=== PATIENT | female | born 1945 | race Caucasian/White ===

== ENCOUNTER → 2017-07-15 | Outpatient (CLI) | payer OTHER ==
[~2017-07-15] MED LIST: ATOR-54 PO; CHOL100010 PO; LISI10TA PO; MULT-55 PO
--- NOTE | 2017-07-15 15:27 | DIAGNOSTIC IMAGING REPORT ---
L WRIST MIN 3 VIEWS ROUTINE CLINICAL HISTORY: 71 years-old Female presenting with LEFT WRIST PAIN. TECHNIQUE: Frontal, bilateral oblique, and lateral views of the left wrist were obtained. COMPARISON: None. FINDINGS: No acute fracture or malalignment. Osteophytosis, joint space loss, and subchondral sclerosis noted at the trapezium-first metacarpal articulation. No other sites of advanced degenerative change. Radiocarpal articulation preserved. IMPRESSION: 1. No acute osseous injury of the left wrist. 2. Degenerative changes of the first carpometacarpal articulation, characteristic of osteoarthritis. Electronically signed by: Rober Chung M.D. 07/15/2017 3:26 PM Dictated Date/Time: 07/15/2017 3:24 PM
== END | disposition home or self-care (01) ==
LOC: C.RAD1850 15:13
PROVIDERS: ATTEND Student in an Organized Health Care Education/Training Program
DX: M25.532 Pain in left wrist (principal)

== ENCOUNTER 2020-07-09 23:01 | Observation (INO) ==
[2020-07-09] MEDS ORDERED: STAT IV Infusion **Titration per Protocol STA (23:24)
[2020-07-09] MEDS ORDERED: dilTIAZem HCl 5 MG/ML 5 ML VIAL IV STA (23:24)
--- NOTE | 2020-07-09 23:28 | Emergency Department Note ---
History of Present Illness General Chief complaint: Arrhythmia/Palpitations Stated complaint: HEART PALPAITATION Time Seen by Provider: 07/09/20 23:10 Source: patient Mode of arrival: ambulatory Limitations: no limitations History of Present Illness Provider complaint: palpitations, sob Onset (ago): minute(s) 25 Location: chest Radiation: non-radiation Severity: moderate Pain Consistency: + constant Maximum Pain Intensity: 7 Quality: + constant Relieved By: + none Associated symptoms: + loss of appetite, + nausea/vomiting and + shortness of breath Treatments prior to arrival: none This is a 74-year-old female who presents emergency department complaining of palpitations. Patient states it seemed to began abruptly this evening not during any particular activity. Patient states she sat has had a similar episode about a month ago, however this went away on its own. She does not recall how long it lasted. Patient states she does take medication for blood pressure and cholesterol, denies any recent changes. Patient states she does typically drink wine, almost daily, states she did not drink any tonight, but did drink on Thursday. Patient states she did have 2 cups of coffee today as well as tea. Patient denies any recent illness or known sick contact, no exposure to coronavirus. Patient has had the first of her coronavirus vaccines. Patient denies any other recent dietary changes. Patient denies any change in bowel or bladder function, no lower extremity edema. Patient denies any history of heart problems or known dysrhythmia. Patient believes at one point she may have had an echo performed of her heart as ordered by her family doctor Dr. Dumont, she cannot recall when this was. Patient denies any significant cardiac history in her family. Patient states when the symptoms started she also felt short of breath, lightheaded, and slightly nauseated. Pt seen during a time of high acuity and national emergency pandemic while wearing PPE. Home Medications Medication Instructions Recorded Confirmed Type atorvastatin 20 mg PO HS 07/09/20 07/09/20 History cholecalciferol (vitamin D3) 50 mcg PO DAILY 07/09/20 07/09/20 History [Vitamin D3] doxycycline hyclate 50 mg PO DAILY 07/09/20 07/09/20 History ibuprofen 600 mg PO TID PRN 07/09/20 07/09/20 History lisinopril 10 mg PO DAILY 07/09/20 07/09/20 History lorazepam 0.5 mg PO TID PRN 07/09/20 07/09/20 History multivitamin [Multiple Vitamin] 1 tab PO DAILY 07/09/20 07/09/20 History Allergies Allergy/AdvReac Type Severity Reaction Status Date / Time No Known Allergies Allergy NONE Unverified 07/09/20 23:28 Past Med/Surg History Medical History (Updated 07/10/20 @ 05:43 by Carlota Rmairez DO) Arthritis Essential (primary) hypertension Frontal fibrosing alopecia Hyperlipidemia Surgical History (Updated 07/10/20 @ 01:38 by Angela Alcala DO) History of section Family History (Updated 07/10/20 @ 01:38 by Angela Alcala DO) Other Cancer Social History (Updated 07/10/20 @ 01:39 by Angela Alcala DO) Smoking Status: Never smoker Hx Alcohol Use: Yes Alcohol type: wine Hx Substance Use: No Preferred Language: Pry[place]in[place] Communication Ability: Effective Prosthetic Aides Teacher Required: No Beliefs That Will Affect Care: None Current Living Situation: Spouse Feels Safe at Home: Yes Assistive Devices: Glasses Review of Systems See HPI for pertinent positives & negatives. and A total of 10 systems reviewed and were otherwise negative Physical Exam Vital Signs Vital Signs - 24 hr 07/09/20 23:06 07/09/20 23:14 07/09/20 23:17 Temperature 36.9 C Temperature Source Temporal Artery Scan Pulse Rate 153 H 160 H 150 H Pulse Rate from SpO2 Sensor 149 H 154 H Respiratory Rate 20 15 18 Respiratory Effort / Characteristics Non-Labored Spontaneous Respiratory Depth Normal Blood Pressure 173/130 H Blood Pressure Mean 144 Blood Pressure Position Sitting Pulse Oximetry 99 97 98 Oxygen Delivery Method Room Air Room Air Room Air Sepsis Recent Fever Within 48 Hours No Sepsis New/Unexplained Change in Mental Status N/A Sepsis Action Taken by Nursing No Action Required 07/09/20 23:30 07/09/20 23:31 07/09/20 23:45 Temperature Temperature Source Pulse Rate 146 H 148 H 123 H Pulse Rate from SpO2 Sensor 134 H 143 H 120 H Respiratory Rate 12 15 23 Respiratory Effort / Characteristics Respiratory Depth Blood Pressure 135/93 Blood Pressure Mean 107 Blood Pressure Position Pulse Oximetry 96 95 95 Oxygen Delivery Method Room Air Room Air Room Air Sepsis Recent Fever Within 48 Hours Sepsis New/Unexplained Change in Mental Status Sepsis Action Taken by Nursing 07/10/20 00:00 07/10/20 00:01 07/10/20 00:15 Temperature Temperature Source Pulse Rate 150 H 125 H 131 H Pulse Rate from SpO2 Sensor 147 H 118 H 126 H Respiratory Rate 18 12 15 Respiratory Effort / Characteristics Respiratory Depth Blood Pressure 139/108 H 132/76 Blood Pressure Mean 118 94 Blood Pressure Position Pulse Oximetry 96 96 94 Oxygen Delivery Method Room Air Room Air Room Air Sepsis Recent Fever Within 48 Hours Sepsis New/Unexplained Change in Mental Status Sepsis Action Taken by Nursing 07/10/20 00:31 07/10/20 00:45 07/10/20 01:00 Temperature Temperature Source Pulse Rate 122 H 126 H 129 H Pulse Rate from SpO2 Sensor 104 H 111 H 108 H Respiratory Rate 12 12 15 Respiratory Effort / Characteristics Respiratory Depth Blood Pressure 121/90 127/87 115/82 Blood Pressure Mean 100 100 93 Blood Pressure Position Pulse Oximetry 95 96 95 Oxygen Delivery Method Room Air Room Air Room Air Sepsis Recent Fever Within 48 Hours Sepsis New/Unexplained Change in Mental Status Sepsis Action Taken by Nursing 07/10/20 01:15 Temperature Temperature Source Pulse Rate 128 H Pulse Rate from SpO2 Sensor 107 H Respiratory Rate 23 Respiratory Effort / Characteristics Respiratory Depth Blood Pressure 109/82 Blood Pressure Mean 91 Blood Pressure Position Pulse Oximetry 93 Oxygen Delivery Method Room Air Sepsis Recent Fever Within 48 Hours Sepsis New/Unexplained Change in Mental Status Sepsis Action Taken by Nursing GENERAL: alert, uncomfortable appearing, well nourished, mild distress, non- toxic EYE EXAM: normal conjunctiva, PERRL and EOM's grossly intact OROPHARYNX: no exudate, no erythema, lips, buccal mucosa, and tongue normal and mucous membranes are moist NECK: supple, no nuchal rigidity, no adenopathy, non-tender LUNGS: Clear to auscultation. Normal chest wall mechanics, no w/r/r HEART: no murmurs, S1 normal and S2 normal, tachycardic, A. fib with RVR on tel emetry ABDOMEN: abdomen soft, non-tender, normo-active bowel sounds, no masses, no rebound or guarding. BACK: Back is symmetrical on inspection and there is no deformity, no midline tenderness, no CVA tenderness. SKIN: no rashes and no bruising UPPER EXTREMITIES: upper extremities are grossly normal. FROM, nml pulses b/l. LOWER EXTREMITIES: No pitting edema. FROM, nml pulses b/l. NEURO EXAM: Normal sensorium, cranial nerves II-XII grossly intact, normal speech, no gross weakness of arms, no gross weakness of legs. Gross sensation intact. Course Administered Medications Sodium Chloride (Nss 1000ml) 1,000 mls @ 125 mls/hr IV .Q8H LUISA Stop: 08/08/20 23:29 Last Admin: 07/09/20 23:33 Dose: 125 mls/hr Documented by: [id number] Diltiazem HCl 125 mg/ Dextrose 125 mls @ 15 mls/hr IV .Q8H20M LUISA; Protocol Stop: 08/08/20 23:29 Last Titration: 07/10/20 04:39 Dose: 10 mg/hr, 10 mls/hr Documented by: [id number] Cosigned by: [id number] Titration: 07/10/20 02:49 Dose: 15 mg/hr, 15 mls/hr Documented by: [id number] Cosigned by: [id number] Titration: 07/10/20 00:39 Dose: 10 mg/hr, 10 mls/hr Documented by: [id number] Cosigned by: [id number] Admin: 07/09/20 23:45 Dose: 5 mg/hr, 5 mls/hr Documented by: [id number] Cosigned by: [id number] Heparin Sodium/Dextrose (Heparin Sodium/Dextrose) 25,000 units in 500 mls @ 13 mls/hr IV .Q24H LUISA; Protocol Stop: 08/09/20 00:59 Last Admin: 07/10/20 01:31 Dose: 650 units/hr, 13 mls/hr Documented by: [id number] Cosigned by: [id number] Discontinued Medications Diltiazem HCl (Diltiazem Hcl 5 Mg/Ml 5 Ml Vial) 15 mg IV NOW STA Stop: 07/09/20 23:25 Last Admin: 07/09/20 23:32 Dose: 15 mg Documented by: [id number] Cosigned by: [id number] Heparin Sodium/Dextrose (Heparin Iv Low Dose *No* Bolus) 1 ea N/A ONE ONE; Protocol Stop: 07/10/20 00:55 Last Admin: 07/10/20 01:32 Dose: Not Given Documented by: [id number] Miscellaneous (Stat Iv Infusion Titration Per Protocol) 1 ea N/A NOW STA Stop: 07/09/20 23:25 Last Admin: 07/10/20 00:41 Dose: Not Given Documented by: [id number] Potassium Chloride (Potassium Chloride Crtab 20 Meq Tabcr) 40 meq PO NOW STA Stop: 07/10/20 00:05 Last Admin: 07/10/20 00:37 Dose: 40 meq Documented by: [id number] Potassium Chloride (Potassium Chloride Crtab 20 Meq Tabcr) 40 meq PO NOW STA Stop: 07/10/20 02:58 Last Admin: 07/10/20 03:49 Dose: 40 meq Documented by: [id number] Critical Care Time Critical Care Time: Yes Total Critical Care Time: 39 Critical care of 39 min performed to assess and manage high likelihood of life- threatening dysrhythmia, involving labs and imaging performed with assessment to evaluate dysrhythmia diagnosis with frequent reassessment. This time includes bedside time, treatment discussions with patient/family/consultants, documentation time and excludes procedure time. Medical Decision Making Differential Diagnosis Differential diagnosis includes etiologies such as premature contractions, electrolyte abnormality, cardiac dysrhythmia, thyroid dysfunction, pulmonary embolism, infection, gastrointestinal, as well as others were entertained. Medical Records Attestation: I reviewed the patient's medical records. Home Medications Current Medication List: was personally reviewed by me Laboratory Data Attestation: I reviewed the patient's lab results. Result diagrams: 07/09/20 23:19 07/09/20 23:19 Lab Results 07/09/20 07/09/20 07/09/20 Range/Units 23:19 23:19 23:19 WBC 9.89 (4.8-10.8) K/uL RBC 4.49 (4.2-5.4) M/uL Hgb 14.1 (12.0-16.0) g/dL Hct 40.8 (37-47) % MCV 90.9 (80-100) fL MCH 31.4 (25-34) pg MCHC 34.6 (32-36) g/dL RDW Std Deviation 41.6 (36.4-46.3) fL RDW Coeff of Zay 12.5 (11.5-14.5) % Plt Count 227 (130-400) K/uL MPV 10.0 (7.4-10.4) fL Immature Gran % (Auto) 0.1 % Neut % (Auto) 43.8 % Lymph % (Auto) 44.6 % [place] % (Auto) 7.9 % Eos % (Auto) 3.2 % Baso % (Auto) 0.4 % Neut # (Auto) 4.33 (1.4-6.5) K/uL Lymph # (Auto) 4.41 H (1.2-3.4) K/uL Noble # (Auto) 0.78 H (0.11-0.59) K/uL Eos # (Auto) 0.32 (0-0.5) K/uL Baso # (Auto) 0.04 (0-0.2) K/uL Immature Gran # (Auto) 0.01 (0.00-0.02) K/uL PT 9.5 (9.0-12.0) Seconds INR 0.9 (0.9-1.1) D-Dimer 570 H* (0-500) ug/L FEU Sodium 139 (136-145) mmol/L Potassium 3.0 L (3.5-5.1) mmol/L Chloride 105 (98-107) mmol/L Carbon Dioxide 24 (21-32) mmol/L Anion Gap 10.0 (3-11) BUN 21 H (7-18) mg/dl Creatinine 0.79 (0.6-1.2) mg/dl Est Cr Clr Drug Dosing 53.6 ml/min Est GFR ( Amer) 86.7 Est GFR (Non-Af Amer) 74.8 BUN/Creatinine Ratio 26.6 H (10-20) Glucose 139 H (70-99) mg/dl Calcium 9.3 (8.5-10.1) mg/dl Magnesium 2.2 (1.8-2.4) mg/dl Total Bilirubin 0.5 (0.2-1) mg/dl AST 12 L (15-37) U/L ALT 27 (12-78) U/L Alkaline Phosphatase 123 H (45-117) U/L Troponin I < 0.015 (0-0.045) ng/ml NT-Pro-B Natriuret Pep 69 (0-900) pg/ml Total Protein 7.6 (6.4-8.2) gm/dl Albumin 4.4 (3.4-5.0) gm/dl Globulin 3.2 (2.5-4.0) gm/dl Albumin/Globulin Ratio 1.4 (0.9-2) TSH 3.030 (0.300-4.500) uIu/ml Urine Color Urine Appearance (Clear) Urine pH (4.5-7.5) Ur Specific [place] (1.000-1.030) Urine Protein (Negative) Urine Glucose (UA) (Negative) Urine Ketones (Negative) Urine Blood (Negative) Urine Nitrite (Negative) Urine Bilirubin (Negative) Urine Urobilinogen (Negative) Ur Leukocyte Esterase (Negative) Ethyl Alcohol mg/dL (0-3) mg/dl Lyme Disease IgG Ab (Negative) Lyme Disease IgM Ab (Negative) COVID-19 Eval Order SARS-CoV-2, RNA, NAAT (NEGATIVE) 07/09/20 07/09/20 07/09/20 Range/Units 23:19 23:46 23:55 WBC (4.8-10.8) K/uL RBC (4.2-5.4) M/uL Hgb (12.0-16.0) g/dL Hct (37-47) % MCV (80-100) fL MCH (25-34) pg MCHC (32-36) g/dL RDW Std Deviation (36.4-46.3) fL RDW Coeff of Zay (11.5-14.5) % Plt Count (130-400) K/uL MPV (7.4-10.4) fL Immature Gran % (Auto) % Neut % (Auto) % Lymph % (Auto) % Noble % (Auto) % Eos % (Auto) % Baso % (Auto) % Neut # (Auto) (1.4-6.5) K/uL Lymph # (Auto) (1.2-3.4) K/uL [place] # (Auto) (0.11-0.59) K/uL Eos # (Auto) (0-0.5) K/uL Baso # (Auto) (0-0.2) K/uL Immature Gran # (Auto) (0.00-0.02) K/uL PT (9.0-12.0) Seconds INR (0.9-1.1) D-Dimer (0-500) ug/L FEU Sodium (136-145) mmol/L Potassium (3.5-5.1) mmol/L Chloride (98-107) mmol/L Carbon Dioxide (21-32) mmol/L Anion Gap (3-11) BUN (7-18) mg/dl Creatinine (0.6-1.2) mg/dl Est Cr Clr Drug Dosing ml/min Est GFR ( Amer) Est GFR (Non-Af Amer) BUN/Creatinine Ratio (10-20) Glucose (70-99) mg/dl Calcium (8.5-10.1) mg/dl Magnesium (1.8-2.4) mg/dl Total Bilirubin (0.2-1) mg/dl AST (15-37) U/L ALT (12-78) U/L Alkaline Phosphatase (45-117) U/L Troponin I (0-0.045) ng/ml NT-Pro-B Natriuret Pep (0-900) pg/ml Total Protein (6.4-8.2) gm/dl Albumin (3.4-5.0) gm/dl Globulin (2.5-4.0) gm/dl Albumin/Globulin Ratio (0.9-2) TSH (0.300-4.500) uIu/ml Urine Color Yellow Urine Appearance Clear (Clear) Urine pH 6.5 (4.5-7.5) Ur Specific [place] 1.007 (1.000-1.030) Urine Protein Negative (Negative) Urine Glucose (UA) Negative (Negative) Urine Ketones Negative (Negative) Urine Blood Negative (Negative) Urine Nitrite Negative (Negative) Urine Bilirubin Negative (Negative) Urine Urobilinogen Negative (Negative) Ur Leukocyte Esterase Negative (Negative) Ethyl Alcohol mg/dL < 3.0 (0-3) mg/dl Lyme Disease IgG Ab Negative (Negative) Lyme Disease IgM Ab Negative (Negative) COVID-19 Eval Order SARS-CoV-2, RNA, NAAT (NEGATIVE) 07/10/20 07/10/20 Range/Units 01:22 01:22 WBC (4.8-10.8) K/uL RBC (4.2-5.4) M/uL Hgb (12.0-16.0) g/dL Hct (37-47) % MCV (80-100) fL MCH (25-34) pg MCHC (32-36) g/dL RDW Std Deviation (36.4-46.3) fL RDW Coeff of Zay (11.5-14.5) % Plt Count (130-400) K/uL MPV (7.4-10.4) fL Immature Gran % (Auto) % Neut % (Auto) % Lymph % (Auto) % Noble % (Auto) % Eos % (Auto) % Baso % (Auto) % Neut # (Auto) (1.4-6.5) K/uL Lymph # (Auto) (1.2-3.4) K/uL [place] # (Auto) (0.11-0.59) K/uL Eos # (Auto) (0-0.5) K/uL Baso # (Auto) (0-0.2) K/uL Immature Gran # (Auto) (0.00-0.02) K/uL PT (9.0-12.0) Seconds INR (0.9-1.1) D-Dimer (0-500) ug/L FEU Sodium (136-145) mmol/L Potassium (3.5-5.1) mmol/L Chloride (98-107) mmol/L Carbon Dioxide (21-32) mmol/L Anion Gap (3-11) BUN (7-18) mg/dl Creatinine (0.6-1.2) mg/dl Est Cr Clr Drug Dosing ml/min Est GFR ( Amer) Est GFR (Non-Af Amer) BUN/Creatinine Ratio (10-20) Glucose (70-99) mg/dl Calcium (8.5-10.1) mg/dl Magnesium (1.8-2.4) mg/dl Total Bilirubin (0.2-1) mg/dl AST (15-37) U/L ALT (12-78) U/L Alkaline Phosphatase (45-117) U/L Troponin I (0-0.045) ng/ml NT-Pro-B Natriuret Pep (0-900) pg/ml Total Protein (6.4-8.2) gm/dl Albumin (3.4-5.0) gm/dl Globulin (2.5-4.0) gm/dl Albumin/Globulin Ratio (0.9-2) TSH (0.300-4.500) uIu/ml Urine Color Urine Appearance (Clear) Urine pH (4.5-7.5) Ur Specific [place] (1.000-1.030) Urine Protein (Negative) Urine Glucose (UA) (Negative) Urine Ketones (Negative) Urine Blood (Negative) Urine Nitrite (Negative) Urine Bilirubin (Negative) Urine Urobilinogen (Negative) Ur Leukocyte Esterase (Negative) Ethyl Alcohol mg/dL (0-3) mg/dl Lyme Disease IgG Ab (Negative) Lyme Disease IgM Ab (Negative) [facility], NAAT NEGATIVE (NEGATIVE) Imaging Data My Impression: X-ray: I interpreted the following studies. Chest: A single view study of the chest was reviewed and was negative for cardiomegaly, focal infiltrate, effusion, pulmonary edema, or wide mediastinum. ECG Data Attestation: I personally reviewed and interpreted this ECG as follows: Indication: + palpitations Rate (beats per minute): 156 Rhythm: + atrial fibrillation ECG Intervals/blocks: + Normal QRS and + Normal QT ECG [place]: + Normal ECG ST segments: + ST depression Blood Pressure Blood Pressure Findings: Elevated blood pressure Blood Pressure Disposition: further management by hospitalist BOB Narrative Chads vas 2 score - 3 HEART score 3 This is a 74-year-old female who presents the emergency room with abrupt onset of palpitations and was found to be in atrial fibrillation with RVR. Patient is otherwise hemodynamically stable. Patient did have other accompanying symptoms, and does have other risk factors for coronary artery disease, no prior history of any dysrhythmia. Labs are drawn and sent and were reassuring. Patient's D- dimer mildly elevated however when age-adjusted I do not feel patient is at an increased risk of DVT/PE. Given patient started with heart rate approaching 160, patient was started with Cardizem bolus and drip. The drip was slowly titrated up and patient's heart rate did slowly decrease. No evidence of acute infectious etiology. Patient's potassium was mildly low and was orally repleted. No other evidence of acute electrolyte abnormality or kidney injury. I do not suspect other occult vascular etiology. Given elevated chads vas 2 score, and need for additional cardiac evaluation prior to making additional management and treatment decisions, case was discussed with the hospitalist. Patient was made aware of all results and was in agreement with plan. An order was placed for continuous cardiac monitoring. The monitor shows a rate of _138_ with _a.fib_ rhythm. Impression & Plan Atrial fibrillation with rapid ventricular response, Hypokalemia Discharge Plan Visit Data Chief Complaint: Arrhythmia/Palpitations Stated Complaint: HEART PALPAITATION ED Provider: Carlota Ramirez Discharge Problem: Atrial fibrillation with rapid ventricular response, Hypokalemia Patient Disposition: Admitted As Inpatient Discharge Instructions Interventions: ED Discharge Assessment Last Done: 07/10/20 02:12
[2020-07-09] MEDS ORDERED: dilTIAZem HCL 125 MG in DEXTROSE 5% 100 ML IV SCH (23:30)
[2020-07-09 23:31] LABS: Basophils # (auto) 0.04 K/uL (0-0.2); Basophils % (auto) 0.4 %; Eosinophils # (auto) 0.32 K/uL (0-0.5); Eosinophils % (auto) 3.2 %; Hematocrit (blood only) 40.8 % (37-47); Hemoglobin 14.1 g/dL (12.0-16.0); Immature Granulocytes # (auto) 0.01 K/uL (0.00-0.02); Immature Granulocytes % (auto) 0.1 %; Lymphocytes # (auto) 4.41 K/uL (1.2-3.4); Lymphocytes % (auto) 44.6 %; Mean Corpuscular Hemoglobin 31.4 pg (25-34); Mean Corpuscular Hgb Conc 34.6 g/dL (32-36); Mean Corpuscular Volume 90.9 fL (80-100); Monocytes # (auto) 0.78 K/uL (0.11-0.59); Monocytes % (auto) 7.9 %; Neutrophils # (auto) 4.33 K/uL (1.4-6.5); Neutrophils % (auto) 43.8 %; Platelet Count 227 K/uL (130-400); RDW Coefficient of Variation 12.5 % (11.5-14.5); RDW Standard Deviation 41.6 fL (36.4-46.3); Red Blood Count 4.49 M/uL (4.2-5.4); White Blood Count 9.89 K/uL (4.8-10.8)
[2020-07-09] MEDS: SODIUM CHLORIDE 0.9% 1000ML 1,000 ML IV SCH (23:33)
[2020-07-09 23:51] LABS: Alanine Aminotransferase 27 U/L (12-78); Albumin Level 4.4 gm/dl (3.4-5.0); Aspartate Aminotransferase 12 U/L (15-37); BUN Creatinine Ratio 26.6 (10-20); Blood Urea Nitrogen 21 mg/dl (7-18); Calcium 9.3 mg/dl (8.5-10.1); Carbon Dioxide 24 mmol/L (21-32); Chloride 105 mmol/L (98-107); Creatinine Clr Calc Pharmacy 53.6 ml/min; Est GFR (African American) 86.7; Est GFR (Non-African American) 74.8; Glucose 139 mg/dl (70-99); INR 0.9 (0.9-1.1); Magnesium 2.2 mg/dl (1.8-2.4); Prothrombin Time 9.5 Seconds (9.0-12.0); Sodium 139 mmol/L (136-145)
[2020-07-10 00:01] LABS: Albumin Globulin Ratio 1.4 (0.9-2); Alkaline Phosphatase 123 U/L (45-117); Bilirubin,Total 0.5 mg/dl (0.2-1); Globulin 3.2 gm/dl (2.5-4.0); NT Pro B Type Natriuretic Pept 69 pg/ml (0-900); Total Protein 7.6 gm/dl (6.4-8.2); Troponin I < 0.015 ng/ml (0-0.045)
[2020-07-10 00:03] LABS: D Dimer 570 ug/L FEU (0-500)
[2020-07-10] MEDS ORDERED: POTASSIUM CHLORIDE CRTAB 20 MEQ TABCR PO STA ×2 (00:04→02:57)
[2020-07-10 00:08] LABS: Appearance Urine Clear (Clear); Bilirubin Urine Negative (Negative); Blood Urine Negative (Negative); Color Urine Yellow; Glucose Urine UA Negative (Negative); Ketones Urine Negative (Negative); Leukocyte Esterase Urine Negative (Negative); Nitrite Urine Negative (Negative); Protein Urine Negative (Negative); Specific Gravity Urine 1.007 (1.000-1.030); Urobilinogen Urine Negative (Negative); pH Urine 6.5 (4.5-7.5)
[2020-07-10] MEDS ORDERED: Heparin IV Adult Wt-Based Low-Dose *NO* Bolus Protocol ONE (00:54)
[2020-07-10] MEDS ORDERED: HEPARIN SODIUM/DEXTROSE 25,000 UNITS/500 ML BAG IV SCH (01:00)
[2020-07-10 01:11] LABS: Lyme Ab IgM w/WB Rflx Negative (Negative)
--- NOTE | 2020-07-10 01:50 | History & Physical Report ---
Date of Service July 10, 2020 Assessment & Plan (1) Atrial fibrillation: 74yo C female presenting in atrial fibrillation with RVR, HR in 150's. HD stable. No history of prior atrial fibrillation, however, patient reports episodic palpitations over the last 6 months. No known cardiac disease. EtoH or caffeine may have precipitated arrhythmia. Also with hypokalemia - K=3. TSH is wnl. Troponin is negative ONRBF-0-Qrnw score=3 points (Female, age 74, history of HTN) - anticoagulation recommended. -Admit to PCU -Repeat troponin, chemistry in AM -Check 2D echo -Continue Cardizem gtt for now. Transition to oral rate controlling agent in AM -Continue Heparin gtt. Transition to DOAC in AM. Anticoagulation discussed with patient. She is aware to avoid NSAIDS, ASA -Followup with Cardiology Present on Admission?: Yes (2) Hyperlipidemia: Chronic -Continue Atorvastatin Present on Admission?: Yes (3) Frontal fibrosing alopecia: Chronic -Continue Doxycycline Present on Admission?: Yes (4) Essential (primary) hypertension: Chronic -Continue Lisinopril -Continue to monitor F/E/N - Complete NSS x 1 liter, K repletion 40mEq given in ER. Will give additional 40 mEq. Repeat labs in AM. Regular diet as tolerated Ppx - Heparin gtt as above Code - DNR/DNI per discussion with patient Dispo - Admit to PCU Present on Admission?: Yes History of Present Illness Chief Complaint: Palpitations Primary Care Provider: Valeriy Dumont MD Carlota To is a pleasant 74yo female with history of HTN, HLP presenting with new onset atrial fibrillation with RVR. Patient was in her usual state of health until this evening around 22:30 when she developed palpitations with associated nausea and shortness of breath. Also with mild chest heaviness and dizziness. Patient has had palpitations intermittently over the last 6 months. She recalls an episode appx 1 month ago that woke her from sleep. She checked her heartrate at that time and found it to be 150 bpm. Patient with no history of heart disease. No prior history of arrhythmia. She drinks caffeine - appx 2 cups daily. She reports she is sensitive to caffeine intake. Today she had two cups of coffee as well as a cup of tea. She also drinks Etoh - 3-4 drinks/night a few nights per week. She reports slightly heavier EtOH intake on 07/08/19 evening when she drank a bottle of wine over the course of the night. No additional complaints at this time. She denies CP, SOB, dizziness, nausea at present. ER Course: Diltiazem bolus and drip, Heparin drip, NSS at 125mL/hr, KCL x 40mEq Allergies Allergy/AdvReac Type Severity Reaction Status Date / Time No Known Allergies Allergy NONE Unverified 07/09/20 23:28 Home Medications Medication Instructions Recorded Confirmed Type atorvastatin 20 mg PO HS 07/09/20 07/09/20 History cholecalciferol (vitamin D3) 50 mcg PO DAILY 07/09/20 07/09/20 History [Vitamin D3] doxycycline hyclate 50 mg PO DAILY 07/09/20 07/09/20 History ibuprofen 600 mg PO TID PRN 07/09/20 07/09/20 History lisinopril 10 mg PO DAILY 07/09/20 07/09/20 History lorazepam 0.5 mg PO TID PRN 07/09/20 07/09/20 History multivitamin [Multiple Vitamin] 1 tab PO DAILY 07/09/20 07/09/20 History Past Med/Surg History Medical History (Updated 07/10/20 @ 01:47 by Angela Alcala DO) Arthritis Essential (primary) hypertension Frontal fibrosing alopecia Hyperlipidemia Surgical History (Updated 07/10/20 @ 01:38 by Angela Alcala DO) History of section Family History (Updated 07/10/20 @ 01:38 by Angela Alcala DO) Other Cancer Social History (Updated 07/10/20 @ 01:39 by Angela Alcala DO) Smoking Status: Former smoker Hx Alcohol Use: Yes Hx Substance Use: No Preferred Language: Syriac Review of Systems Review of Systems: All systems reviewed & are unremarkable except as noted in HPI & below Physical Exam Physical Exam: General: patient resting comfortably, NAD, non-toxic in appearance, AA&O x 4 Skin: warm, dry, intact, no rashes or lesions HEENT: NC/AT, PERRL, EOMI, anicteric sclera, conjunctiva without injection, external ear normal to inspection and nontender, nares patent, moist mucus membranes, dentition intact, no oropharyngeal lesions, neck supple, trachea midline, no LAD, no thyromegaly, no JVD Heart: +S1/S2, irregularly irregular, no m/r/g Lungs: equal air entry bilaterally, no rales/rhonchi/wheezes Abd: +BS, soft, NT/ND, no masses/organomegaly/ascites Ext: warm, 2+ pulses in UE/LE bilaterally, no clubbing/cyanosis or edema Neuro: nonfocal, patient AA&O x 4, speech intact, no facial droop, moving all extremities on command with equal strength 5/5 Results & Data Results & Data ([facility]) Vital Signs (Past 12 Hours) Vital Signs Temp Pulse Resp BP Pulse Ox 07/10/20 01:00 129 H 15 115/82 95 07/10/20 00:45 126 H 12 127/87 96 07/10/20 00:31 122 H 12 121/90 95 07/10/20 00:15 131 H 15 132/76 94 07/10/20 00:01 125 H 12 96 07/10/20 00:00 150 H 18 139/108 H 96 07/09/20 23:45 123 H 23 95 07/09/20 23:31 148 H 15 95 07/09/20 23:30 146 H 12 135/93 96 07/09/20 23:17 150 H 18 98 07/09/20 23:14 160 H 15 173/130 H 97 07/09/20 23:06 36.9 C 153 H 20 99 Laboratory Results Lab Results 07/09/20 07/09/20 07/09/20 Range/Units 23:19 23:19 23:19 WBC 9.89 (4.8-10.8) K/uL RBC 4.49 (4.2-5.4) M/uL Hgb 14.1 (12.0-16.0) g/dL Hct 40.8 (37-47) % MCV 90.9 (80-100) fL MCH 31.4 (25-34) pg MCHC 34.6 (32-36) g/dL RDW Std Deviation 41.6 (36.4-46.3) fL RDW Coeff of Zay 12.5 (11.5-14.5) % Plt Count 227 (130-400) K/uL MPV 10.0 (7.4-10.4) fL Immature Gran % (Auto) 0.1 % Neut % (Auto) 43.8 % Lymph % (Auto) 44.6 % [place] % (Auto) 7.9 % Eos % (Auto) 3.2 % Baso % (Auto) 0.4 % Neut # (Auto) 4.33 (1.4-6.5) K/uL Lymph # (Auto) 4.41 H (1.2-3.4) K/uL [place] # (Auto) 0.78 H (0.11-0.59) K/uL Eos # (Auto) 0.32 (0-0.5) K/uL Baso # (Auto) 0.04 (0-0.2) K/uL Immature Gran # (Auto) 0.01 (0.00-0.02) K/uL PT 9.5 (9.0-12.0) Seconds INR 0.9 (0.9-1.1) D-Dimer 570 H* (0-500) ug/L FEU Sodium 139 (136-145) mmol/L Potassium 3.0 L (3.5-5.1) mmol/L Chloride 105 (98-107) mmol/L Carbon Dioxide 24 (21-32) mmol/L Anion Gap 10.0 (3-11) BUN 21 H (7-18) mg/dl Creatinine 0.79 (0.6-1.2) mg/dl Est Cr Clr Drug Dosing 53.6 ml/min Est GFR ( Amer) 86.7 Est GFR (Non-Af Amer) 74.8 BUN/Creatinine Ratio 26.6 H (10-20) Glucose 139 H (70-99) mg/dl Calcium 9.3 (8.5-10.1) mg/dl Magnesium 2.2 (1.8-2.4) mg/dl Total Bilirubin 0.5 (0.2-1) mg/dl AST 12 L (15-37) U/L ALT 27 (12-78) U/L Alkaline Phosphatase 123 H (45-117) U/L Troponin I < 0.015 (0-0.045) ng/ml NT-Pro-B Natriuret Pep 69 (0-900) pg/ml Total Protein 7.6 (6.4-8.2) gm/dl Albumin 4.4 (3.4-5.0) gm/dl Globulin 3.2 (2.5-4.0) gm/dl Albumin/Globulin Ratio 1.4 (0.9-2) TSH 3.030 (0.300-4.500) uIu/ml Urine Color Urine Appearance (Clear) Urine pH (4.5-7.5) Ur Specific [place] (1.000-1.030) Urine Protein (Negative) Urine Glucose (UA) (Negative) Urine Ketones (Negative) Urine Blood (Negative) Urine Nitrite (Negative) Urine Bilirubin (Negative) Urine Urobilinogen (Negative) Ur Leukocyte Esterase (Negative) Ethyl Alcohol mg/dL (0-3) mg/dl Lyme Disease IgM Ab (Negative) COVID-19 Eval Order 07/09/20 07/09/20 07/09/20 Range/Units 23:19 23:46 23:55 WBC (4.8-10.8) K/uL RBC (4.2-5.4) M/uL Hgb (12.0-16.0) g/dL Hct (37-47) % MCV (80-100) fL MCH (25-34) pg MCHC (32-36) g/dL RDW Std Deviation (36.4-46.3) fL RDW Coeff of Zay (11.5-14.5) % Plt Count (130-400) K/uL MPV (7.4-10.4) fL Immature Gran % (Auto) % Neut % (Auto) % Lymph % (Auto) % [place] % (Auto) % Eos % (Auto) % Baso % (Auto) % Neut # (Auto) (1.4-6.5) K/uL Lymph # (Auto) (1.2-3.4) K/uL [place] # (Auto) (0.11-0.59) K/uL Eos # (Auto) (0-0.5) K/uL Baso # (Auto) (0-0.2) K/uL Immature Gran # (Auto) (0.00-0.02) K/uL PT (9.0-12.0) Seconds INR (0.9-1.1) D-Dimer (0-500) ug/L FEU Sodium (136-145) mmol/L Potassium (3.5-5.1) mmol/L Chloride (98-107) mmol/L Carbon Dioxide (21-32) mmol/L Anion Gap (3-11) BUN (7-18) mg/dl Creatinine (0.6-1.2) mg/dl Est Cr Clr Drug Dosing ml/min Est GFR ( Amer) Est GFR (Non-Af Amer) BUN/Creatinine Ratio (10-20) Glucose (70-99) mg/dl Calcium (8.5-10.1) mg/dl Magnesium (1.8-2.4) mg/dl Total Bilirubin (0.2-1) mg/dl AST (15-37) U/L ALT (12-78) U/L Alkaline Phosphatase (45-117) U/L Troponin I (0-0.045) ng/ml NT-Pro-B Natriuret Pep (0-900) pg/ml Total Protein (6.4-8.2) gm/dl Albumin (3.4-5.0) gm/dl Globulin (2.5-4.0) gm/dl Albumin/Globulin Ratio (0.9-2) TSH (0.300-4.500) uIu/ml Urine Color Yellow Urine Appearance Clear (Clear) Urine pH 6.5 (4.5-7.5) Ur Specific [place] 1.007 (1.000-1.030) Urine Protein Negative (Negative) Urine Glucose (UA) Negative (Negative) Urine Ketones Negative (Negative) Urine Blood Negative (Negative) Urine Nitrite Negative (Negative) Urine Bilirubin Negative (Negative) Urine Urobilinogen Negative (Negative) Ur Leukocyte Esterase Negative (Negative) Ethyl Alcohol mg/dL < 3.0 (0-3) mg/dl Lyme Disease IgM Ab Negative (Negative) COVID-19 Eval Order 07/10/20 Range/Units 01:22 WBC (4.8-10.8) K/uL RBC (4.2-5.4) M/uL Hgb (12.0-16.0) g/dL Hct (37-47) % MCV (80-100) fL MCH (25-34) pg MCHC (32-36) g/dL RDW Std Deviation (36.4-46.3) fL RDW Coeff of Zay (11.5-14.5) % Plt Count (130-400) K/uL MPV (7.4-10.4) fL Immature Gran % (Auto) % Neut % (Auto) % Lymph % (Auto) % [place] % (Auto) % Eos % (Auto) % Baso % (Auto) % Neut # (Auto) (1.4-6.5) K/uL Lymph # (Auto) (1.2-3.4) K/uL [place] # (Auto) (0.11-0.59) K/uL Eos # (Auto) (0-0.5) K/uL Baso # (Auto) (0-0.2) K/uL Immature Gran # (Auto) (0.00-0.02) K/uL PT (9.0-12.0) Seconds INR (0.9-1.1) D-Dimer (0-500) ug/L FEU Sodium (136-145) mmol/L Potassium (3.5-5.1) mmol/L Chloride (98-107) mmol/L Carbon Dioxide (21-32) mmol/L Anion Gap (3-11) BUN (7-18) mg/dl Creatinine (0.6-1.2) mg/dl Est Cr Clr Drug Dosing ml/min Est GFR ( Amer) Est GFR (Non-Af Amer) BUN/Creatinine Ratio (10-20) Glucose (70-99) mg/dl Calcium (8.5-10.1) mg/dl Magnesium (1.8-2.4) mg/dl Total Bilirubin (0.2-1) mg/dl AST (15-37) U/L ALT (12-78) U/L Alkaline Phosphatase (45-117) U/L Troponin I (0-0.045) ng/ml NT-Pro-B Natriuret Pep (0-900) pg/ml Total Protein (6.4-8.2) gm/dl Albumin (3.4-5.0) gm/dl Globulin (2.5-4.0) gm/dl Albumin/Globulin Ratio (0.9-2) TSH (0.300-4.500) uIu/ml Urine Color Urine Appearance (Clear) Urine pH (4.5-7.5) Ur Specific [place] (1.000-1.030) Urine Protein (Negative) Urine Glucose (UA) (Negative) Urine Ketones (Negative) Urine Blood (Negative) Urine Nitrite (Negative) Urine Bilirubin (Negative) Urine Urobilinogen (Negative) Ur Leukocyte Esterase (Negative) Ethyl Alcohol mg/dL (0-3) mg/dl Lyme Disease IgM Ab (Negative) COVID[facility] Findings CXR - by my interpretation - no active disease in the chest ECG Additional Comments: EKG wtih atrial fibrillation at 156bpm, ST depressions in anterior/lateral leads, no ST elevations PG Care Time/CCT Total # of Minutes Spent Total Time Spent with Patient: Total time spent is greater than 50% in coordination of care (as documented) at patient's floor/unit and/or counseling patient: Coding Level of Care Code 46884 Initial Inpt Care Lvl 2 Diagnoses Atrial fibrillation I48.91 Atrial fibrillation type: unspecified Hyperlipidemia E78.5 Hyperlipidemia type: unspecified Frontal fibrosing alopecia L66.1 Essential (primary) hypertension I10 (1) Atrial fibrillation Atrial fibrillation type: unspecified Qualified Code(s): I48.91 - Unspecified atrial fibrillation (2) Hyperlipidemia Hyperlipidemia type: unspecified Qualified Code(s): E78.5 - Hyperlipidemia, unspecified
[2020-07-10 02:32] LABS: Lyme Ab IgG w/WB Rflx Negative (Negative)
[2020-07-10] MEDS ORDERED: ACETAMINOPHEN 325 MG TAB PO PRN (02:57)
[2020-07-10] MEDS ORDERED: ONDANSETRON INJ 2 MG/ML 2 ML VIAL IV PRN (02:57)
[2020-07-10] MEDS ORDERED: LORazepam 0.5 MG TAB PO PRN (02:57)
[2020-07-10] MEDS: SODIUM CHLORIDE 0.9% 1000ML 1,000 ML IV SCH (05:58)
[2020-07-10 08:05] LABS: Partial Thromboplastin Ratio 1.2; Partial Thromboplastin Time 31.7 Seconds (21.0-31.0)
--- NOTE | 2020-07-10 08:09 | XRay Report ---
XR chest 1V portable HISTORY: 74 years-old Female palpitations, sob acute shortness of breath with cardiac palpitations COMPARISON: Chest radiograph 10/21/2017 TECHNIQUE: Portable AP view of the chest FINDINGS: Cardiac silhouette is upper limits of normal in size. Calcified plaque the thoracic aorta. No pneumot horax, pleural effusion, airspace consolidation or overt pulmonary edema. Bones of the chest appear g rossly intact. IMPRESSION: No acute process. ACT 112: Negative or not required by law. The above report was generated using voice recognition software. It may contain grammatical, syntax o r spelling errors. Electronically signed by: Johnny Rucker M.D. 07/10/2020 8:07 AM
[2020-07-10] MEDS ORDERED: DOXYCYCLINE HYCLATE 50 MG CAP PO SCH (09:00)
[2020-07-10] MEDS ORDERED: CHOLECALCIFEROL 1,000 UNITS 25 MCG TAB PO SCH (09:00)
[2020-07-10] MEDS ORDERED: lisinopril 10 MG TAB PO SCH (09:00)
[2020-07-10] MEDS ORDERED: HEPARIN IV BOLUS 2,000 UNITS in SYRINGE 0 ML IV STA (09:34)
[2020-07-10 10:28] LABS: Est GFR (African American) 108.6; Est GFR (Non-African American) 93.7; Magnesium 2.2 mg/dl (1.8-2.4); Potassium 4.1 mmol/L (3.5-5.1)
--- NOTE | 2020-07-10 12:41 | History & Physical Bridge Note ---
Date of Service July 10, 2020 History & Physical Bridge Note I have examined the patient, reviewed the History & Physical and in the interval since the performance of the History & Physical I have noted the following changes of clinical significance: Pt converted to NSR at 0727 today, rates now in the 70s. No further chest pain, no SOB, no palpitations. Has a h/o bloody stools 4 years ago and had normal EGD/colonoscopy,no recurrence since then. Takes ibuprofen for OA and we discussed alternatives once on anticoagulation. VSS NAD, AAOx3 RRRno mgr CTAB no wcr +BS, soft NT ND on abd Ext no edema Skin no rashes Labs reviewed--> K+ normal, trop neg x 2 ECG pending 74 yo female with HTN, HL, here with hypokalemia, rapid Afib. Now converted. Has had irreg rapid HR in the past, likely occult Afib.No h/o CVA.Remote h/o GIB with no recurrence and normal scopes at that time. -consult Cardio -will hold lisinopril and give room for BP to come up to add on AV ifrah blocking agent discussed starting DOAC and she is agreeable--will await Cardio recommendation but likely could start Eliquis tonight. -follow BMP in AM
--- NOTE | 2020-07-10 13:10 | XCELERA ---
[id number]
[2020-07-10 13:52] LABS: Partial Thromboplastin Ratio 1.6; Partial Thromboplastin Time 43.1 Seconds (21.0-31.0)
--- NOTE | 2020-07-10 14:48 | Cardiology Consultation ---
Date of Consultation July 10, 2020 Assessment & Plan (1) Atrial fibrillation: Her atrial fibrillation is likely related to her age, history of hypertension, mitral regurgitation and possibly her alcohol use. She had a rapid ventricular response. She spontaneously converted early this morning. I think she could be safely discharged. She has an elevated chads Vasc score based on her gender, age and history of hypertension. We discussed anticoagulation and I would recommend 1 of the novel oral anticoagulants, Eliquis or Xarelto would be adequate, whichever the patient prefers or is less expensive. I think stopping her lisinopril and prescribing her diltiazem may be of benefit. Being on some rate control may prevent rapid ventricular rates when she has additional episodes in this may reduce the severity of her symptoms. I do not believe she would tolerate both antihypertensives. I do not believe she has an independent indication for lisinopril in particular. I think drinking less alcohol would likely be of benefit. Limiting her consumption to 2 drinks or preferably less daily may have some benefit in reducing future episodes of atrial fibrillation. I will make arrangements to see her back in my office in a few weeks to monitor her response to medical therapy and see if she is having any recurrent symptoms. (2) Essential (primary) hypertension: Blood pressure relatively low currently. I think switching her lisinopril to long-acting diltiazem would be reasonable. Starting 120 mg daily may be a good dose. (3) Valvular heart disease: She has some element of mitral and aortic regurgitation. She has some left atrial enlargement. This is likely a substrate for the development of atrial fibrillation as well. No current symptoms of valvular heart disease. This could be monitored over time. History of Present Illness Reason for Consultation: Atrial fibrillation Requesting Physician: Derick Attending Physician: Juanita Sepulveda MD History of Present Illness The patient is a 74-year-old woman with a history of hypertension who noticed the onset of a rapid heartbeat last evening. Patient states she was enjoying a snack all the sudden she noticed a sudden increase in her heart rate. Heart rate was also irregular. She had some associated chest discomfort and mild breathing difficulty. No significant dizziness or lightheadedness. Some nausea as well. Based on the nature of the symptoms she sought medical attention and was diagnosed with atrial fibrillation and associated rapid ventricular response. Medications were started in the emergency room with gradual improvement in her symptoms. She states that early this morning she began to feel markedly better. Currently no symptoms. The patient states she has had palpitations over the past few months. These generally are brief, spontaneous and self-limited. She is able to perform her usual daily activities but does not exercise vigorously. She has some exercise which will do a couple of times per week. She does not appear to have symptoms associated with activity outside of some orthopedic issues. She denies limiting exertional dyspnea. She has not had other symptoms of chest discomfort. Allergies Allergy/AdvReac Type Severity Reaction Status Date / Time No Known Allergies Allergy NONE Unverified 07/09/20 23:28 Home Medications Medication Instructions Recorded Confirmed Type atorvastatin 20 mg PO HS 07/09/20 07/09/20 History cholecalciferol (vitamin D3) 50 mcg PO DAILY 07/09/20 07/09/20 History [Vitamin D3] doxycycline hyclate 50 mg PO DAILY 07/09/20 07/09/20 History ibuprofen 600 mg PO TID PRN 07/09/20 07/09/20 History lisinopril 10 mg PO DAILY 07/09/20 07/09/20 History lorazepam 0.5 mg PO TID PRN 07/09/20 07/09/20 History multivitamin [Multiple Vitamin] 1 tab PO DAILY 07/09/20 07/09/20 History Patient History Medical History Arthritis Essential (primary) hypertension Frontal fibrosing alopecia Hyperlipidemia Surgical History History of section Family History Other Cancer Social History Smoking Status: Never smoker Hx Alcohol Use: Yes Alcohol type: wine Hx Substance Use: No Preferred Language: Montenegrin Communication Ability: Effective [employer]ker Required: No Beliefs That Will Affect Care: None Current Living Situation: Spouse Feels Safe at Home: Yes Assistive Devices: None Review of Systems Review of Systems: All systems reviewed & are unremarkable except as noted in HPI & below She states that she does snore, but not loudly. She has not been told that she has significant snoring. As noted in her history she will have several alcoholic beverages daily. Physical Exam Physical Exam: She is alert and oriented x3. Mood affect appear normal. She answered all questions appropriately. HEENT: Sclerae are anicteric. Pupils are equal and reactive to light and accommodation. Extraocular movements were intact. Neuro: Cranial nerves intact Neck: Examination of the submandibular region did not reveal any significant lymphadenopathy. Carotids are palpable bilaterally and free of bruits on auscultation. There was no evidence of jugular venous distention. The thyroid was not enlarged. Lungs: Lungs are clear to auscultation bilaterally. There are no rales wheezes or rhonchi. She has normal respiratory effort without use of accessory muscles. There is normal pulmonary excursion. Cardiac: The rhythm was regular. S1 and S2 were normal. Soft holosystolic murmur. The PMI was not markedly displaced on palpation. Abdomen: The abdomen was soft and nontender. Extremities: Patient has bilateral radial pulses that are equal in intensity. There is no evidence cyanosis or clubbing. There was no evidence of significant peripheral edema bilaterally. Skin: There are no rashes noted on examination today. Results & Data ([facility]) Vital Signs (Past 12 Hours) Vital Signs Temp Pulse Pulse Resp BP Pulse Ox Pulse Ox 07/10/20 10:58 36.8 C 63 19 94/60 L 95 07/10/20 07:44 36.6 C 69 19 111/71 96 07/10/20 07:30 65 07/10/20 07:00 82 07/10/20 02:57 95 Laboratory Results Abnormal Lab Results 07/09/20 07/09/20 07/09/20 23:19 23:19 23:19 WBC 9.89 RBC 4.49 Hgb 14.1 Hct 40.8 MCV 90.9 MCH 31.4 MCHC 34.6 RDW Std Deviation 41.6 RDW Coeff of Zay 12.5 Plt Count 227 MPV 10.0 Immature Gran % (Auto) 0.1 Neut % (Auto) 43.8 Lymph % (Auto) 44.6 [place] % (Auto) 7.9 Eos % (Auto) 3.2 Baso % (Auto) 0.4 Neut # (Auto) 4.33 Lymph # (Auto) 4.41 H [place] # (Auto) 0.78 H Eos # (Auto) 0.32 Baso # (Auto) 0.04 Immature Gran # (Auto) 0.01 PT 9.5 INR 0.9 APTT PTT Ratio D-Dimer 570 H* Sodium 139 Potassium 3.0 L Chloride 105 Carbon Dioxide 24 Anion Gap 10.0 BUN 21 H Creatinine 0.79 Est Cr Clr Drug Dosing 53.6 Est GFR ( Amer) 86.7 Est GFR (Non-Af Amer) 74.8 BUN/Creatinine Ratio 26.6 H Glucose 139 H Calcium 9.3 Magnesium 2.2 Total Bilirubin 0.5 AST 12 L ALT 27 Alkaline Phosphatase 123 H Troponin I < 0.015 NT-Pro-B Natriuret Pep 69 Total Protein 7.6 Albumin 4.4 Globulin 3.2 Albumin/Globulin Ratio 1.4 TSH 3.030 Urine Color Urine Appearance Urine pH Ur Specific Thayer Urine Protein Urine Glucose (UA) Urine Ketones Urine Blood Urine Nitrite Urine Bilirubin Urine Urobilinogen Ur Leukocyte Esterase Ethyl Alcohol mg/dL Lyme Disease IgG Ab Lyme Disease IgM Ab COVID-19 Eval Order SARS-CoV-2, RNA, NAAT 07/09/20 07/09/20 07/09/20 23:19 23:46 23:55 WBC RBC Hgb Hct MCV MCH MCHC RDW Std Deviation RDW Coeff of Zay Plt Count MPV Immature Gran % (Auto) Neut % (Auto) Lymph % (Auto) [place] % (Auto) Eos % (Auto) Baso % (Auto) Neut # (Auto) Lymph # (Auto) [place] # (Auto) Eos # (Auto) Baso # (Auto) Immature Gran # (Auto) PT INR APTT PTT Ratio D-Dimer Sodium Potassium Chloride Carbon Dioxide Anion Gap BUN Creatinine Est Cr Clr Drug Dosing Est GFR ( Amer) Est GFR (Non-Af Amer) BUN/Creatinine Ratio Glucose Calcium Magnesium Total Bilirubin AST ALT Alkaline Phosphatase Troponin I NT-Pro-B Natriuret Pep Total Protein Albumin Globulin Albumin/Globulin Ratio TSH Urine Color Yellow Urine Appearance Clear Urine pH 6.5 Ur Specific Thayer 1.007 Urine Protein Negative Urine Glucose (UA) Negative Urine Ketones Negative Urine Blood Negative Urine Nitrite Negative Urine Bilirubin Negative Urine Urobilinogen Negative Ur Leukocyte Esterase Negative Ethyl Alcohol mg/dL < 3.0 Lyme Disease IgG Ab Negative Lyme Disease IgM Ab Negative COVID-19 Eval Order SARS-CoV-2, RNA, NAAT 0207/10/20 07/10/20 01:22 01:22 05:56 WBC RBC Hgb Hct MCV MCH MCHC RDW Std Deviation RDW Coeff of Zay Plt Count MPV Immature Gran % (Auto) Neut % (Auto) Lymph % (Auto) [place] % (Auto) Eos % (Auto) Baso % (Auto) Neut # (Auto) Lymph # (Auto) [place] # (Auto) Eos # (Auto) Baso # (Auto) Immature Gran # (Auto) PT INR APTT PTT Ratio D-Dimer Sodium Potassium Chloride Carbon Dioxide Anion Gap BUN Creatinine Est Cr Clr Drug Dosing Est GFR ( Amer) Est GFR (Non-Af Amer) BUN/Creatinine Ratio Glucose Calcium Magnesium Total Bilirubin AST ALT Alkaline Phosphatase Troponin I < 0.015 NT-Pro-B Natriuret Pep Total Protein Albumin Globulin Albumin/Globulin Ratio TSH Urine Color Urine Appearance Urine pH Ur Specific Thayer Urine Protein Urine Glucose (UA) Urine Ketones Urine Blood Urine Nitrite Urine Bilirubin Urine Urobilinogen Ur Leukocyte Esterase Ethyl Alcohol mg/dL Lyme Disease IgG Ab Lyme Disease IgM Ab COVID-19 Eval Order Covid19 IDNow Counts include 234 beds at the [facility] SARS-CoV-2, RNA, NAAT NEGATIVE 07/10/20 07/10/20 07/10/20 06:00 07:32 13:24 WBC RBC Hgb Hct MCV MCH MCHC RDW Std Deviation RDW Coeff of Zay Plt Count MPV Immature Gran % (Auto) Neut % (Auto) Lymph % (Auto) [place] % (Auto) Eos % (Auto) Baso % (Auto) Neut # (Auto) Lymph # (Auto) [place] # (Auto) Eos # (Auto) Baso # (Auto) Immature Gran # (Auto) PT INR APTT 31.7 H 43.1 H PTT Ratio 1.2 1.6 D-Dimer Sodium 145 Potassium 4.1 D Chloride 114 H Carbon Dioxide 23 Anion Gap 8.0 BUN 13 Creatinine 0.55 L Est Cr Clr Drug Dosing 76.0 Est GFR ( Amer) 108.6 Est GFR (Non-Af Amer) 93.7 BUN/Creatinine Ratio 23.0 H Glucose 115 H Calcium 9.0 Magnesium 2.2 Total Bilirubin AST ALT Alkaline Phosphatase Troponin I NT-Pro-B Natriuret Pep Total Protein Albumin Globulin Albumin/Globulin Ratio TSH Urine Color Urine Appearance Urine pH Ur Specific Thayer Urine Protein Urine Glucose (UA) Urine Ketones Urine Blood Urine Nitrite Urine Bilirubin Urine Urobilinogen Ur Leukocyte Esterase Ethyl Alcohol mg/dL Lyme Disease IgG Ab Lyme Disease IgM Ab COVID-19 Eval Order SARS-CoV-2, RNA, NAAT Diagnostic Findings Obtained the time admission not reveal any acute cardiopulmonary process Echocardiogram performed today revealed preserved LV systolic function with moderate mitral regurgitation and mild aortic regurgitation. Mild left atrial dilation. ECG Additional Comments: EKG obtained the time admission revealed atrial fibrillation with rapid ventricular response. Second EKG obtained this afternoon revealed normal sinus rhythm. PG Care Time/CCT Total # of Minutes Spent Total Time Spent with Patient: Total time spent is greater than 50% in coordination of care (as documented) at patient's floor/unit and/or counseling patient: Coding Level of Care Code 83822 Initial Inpt Care Lvl 3 Diagnoses Atrial fibrillation I48.91 Atrial fibrillation type: unspecified Essential (primary) hypertension I10 Valvular heart disease I38 (1) Atrial fibrillation Atrial fibrillation type: unspecified Qualified Code(s): I48.91 - Unspecified atrial fibrillation
[2020-07-10] MEDS ORDERED: APIXABAN 5 MG TABLET PO SCH (16:35)
--- NOTE | 2020-07-10 16:47 | Electrocardiogram Report ---
Test Reason : Blood Pressure : / mmHG Vent. Rate : 156 BPM Atrial Rate : 178 BPM P-R Int : 000 ms QRS Dur : 072 ms QT Int : 292 ms P-R-T Axes : 000 021 259 degrees QTc Int : 470 ms Atrial fibrillation with rapid ventricular response Nonspecific ST and T wave abnormality Abnormal ECG When compared with ECG of 08-APR-2010 09:11, Atrial fibrillation has replaced Sinus rhythm Vent. rate has increased BY [address] now depressed in Anterolateral leads Nonspecific T wave abnormality, worse in Inferior leads T wave inversion now evident in Lateral leads Confirmed by Kiko Diaz ([id number]) on 07/10/2020 4:47:08 PM Referred By: REFERRED SELF Confirmed By:Timothy Diaz
--- NOTE | 2020-07-10 16:55 | Electrocardiogram Report ---
Test Reason : Blood Pressure : / mmHG Vent. Rate : 071 BPM Atrial Rate : 071 BPM P-R Int : 158 ms QRS Dur : 070 ms QT Int : 414 ms P-R-T Axes : 032 050 053 degrees QTc Int : 449 ms Normal sinus rhythm Normal ECG When compared with ECG of 09-JUL-2020 23:13, (unconfirmed) Sinus rhythm has replaced Atrial fibrillation Vent. rate has decreased BY [address] no longer depressed in Inferior leads ST no longer depressed in Anterolateral leads Nonspecific T wave abnormality no longer evident in Inferior leads T wave inversion no longer evident in Lateral leads Confirmed by Kiko Diaz ([id number]) on 07/10/2020 4:55:04 PM Referred By: REFERRED SELF Confirmed By:Timothy Diaz
--- NOTE | 2020-07-10 17:02 | Discharge Summary ---
Date of Service July 10, 2020 Admission HPI Per Admitting Provider Carlota To is a pleasant 74yo female with history of HTN, HLP presenting with new onset atrial fibrillation with RVR. Patient was in her usual state of health until this evening around 22:30 when she developed palpitations with associated nausea and shortness of breath. Also with mild chest heaviness and dizziness. Patient has had palpitations intermittently over the last 6 months. She recalls an episode appx 1 month ago that woke her from sleep. She checked her heartrate at that time and found it to be 150 bpm. Patient with no history of heart disease. No prior history of arrhythmia. She drinks caffeine - appx 2 cups daily. She reports she is sensitive to caffeine intake. Today she had two cups of coffee as well as a cup of tea. She also drinks Etoh - 3-4 drinks/night a few nights per week. She reports slightly heavier EtOH intake on 07/08/19 evening when she drank a bottle of wine over the course of the night. No additional complaints at this time. She denies CP, SOB, dizziness, nausea at present. ER Course: Diltiazem bolus and drip, Heparin drip, NSS at 125mL/hr, KCL x 40mEq Principal Diagnosis Rapid atrial fibrillation Discharge Exam Constitutional WD/WN, vitals as above Eyes + anicteric sclerae Neck trachea midline, no thyromegaly Respiratory normal respiratory effort, lungs clear to auscultation Cardiovascular RRR, no murmur, no edema Chest (Breasts) Chest: normal inspection of chest Gastrointestinal (Abdomen) normal bowel sounds, soft, nontender, no hepatosplenomegaly Musculoskeletal Extremities: extremities normal to inspection; no cyanosis and no clubbing Skin no rashes, warm and dry Neurologic moves all extremities and awake; no focal motor deficits Psychiatric A+Ox3, euthymic affect Lymphatic no lymphedema Discharge Data Allergies Allergy/AdvReac Type Severity Reaction Status Date / Time No Known Allergies Allergy NONE Unverified 07/09/20 23:28 Consultations 07/10/20 00:55 ED Decision to Admit Stat 07/10/20 09:24 Consult Cardiology Routine Ordered Studies CXR ECHO Hospital Course (1) Atrial fibrillation: 74yo C female presenting in atrial fibrillation with RVR, HR in 150's. HD stable. No history of prior atrial fibrillation, however, patient reports episodic palpitations over the last 6 months. No known cardiac disease. EtoH or caffeine may have precipitated arrhythmia. Also with hypokalemia - K=3. TSH is wnl. Troponin is negative [id number] score=3 points (Female, age 74, history of HTN) - anticoagulation recommended and she was initially given heparin gtt--> converted to Eliquis 5mg po bid on discharge -serial troponin negative, repeat chemistry normalized after K+ replacement ECHO with mildly dilated LA, mod MR, preserved EF -was placed on dilt gtt, converted spontaneously to NSR the next AM -APpreciate Cardiology consult -start DIltiazem 120mg po qday and STOP lisinopril as BPs low normal -She is aware to avoid NSAIDS, ASA -Followup with Cardiology as outpt (2) Hyperlipidemia: Chronic -Continue Atorvastatin (3) Frontal fibrosing alopecia: Chronic -Continue Doxycycline (4) Essential (primary) hypertension: Chronic -dc Lisinopril and start dilt as above for rate control and HTN (5) Hypokalemia: replaced and resolved (6) DVT prophylaxis: Ppx - Heparin gtt as above, converted to Eliquis and cost savings card given Code - DNR/DNI per discussion with patient Dispo - dc to home Total Time Total Time Spent Total Time Spent (In Minutes): 35 min Total Time Includes: Examination of the Patient, Discharge Planning and Medication Reconciliation Discharge Plan Discharge Items Patient Disposition: Home - Self-Care Reason For Visit: ATRIAL FIBRILLATION Discharge Diagnosis: Rapid atrial fibrillation Condition on Discharge: Good Activity: Resume your previous activity Non-emergency contact: Primary Care Provider and Smocking Machine Operator Call non-emergency contact if: you have any medication questions and your symptoms worsen Follow-up/Referrals: Santiago Diaz MD [Physician] - (Follow up within 2 weeks-his office should call to schedule an appointment.) Valeriy Dumont MD [Primary Care Provider] - (Follow up within 1-2 weeks.) Diet: Heart Healthy Addtl Attending Provider Instructions: You were admitted for rapid atrial fibrillation which is an irregular rhythm of the heart that places you at increased risk for stroke. Your heart spontaneously converted back to a normal rhythm. You were started on a new medication called diltiazem which is a blood pressure medication, but also helps to slow down the rate of the heart if you should go back into this irregular rhythm in the future. You should STOP your lisinopril as the diltiazem will also control your blood pressure. You were also started on a blood thinner called Eliquis to reduce your risk of stroke. While you are on a blood thinner, you are at increased risk for bleeding. If you have any difficulties with bleeding such as blood in your stool, urine, or vomit, develop a bad headache, or suffer a traumatic wound with bleeding, please go to the hospital as soon as possible. Follow up with the Smocking Machine Operator and your PCP within 2 weeks. It was a pleasure seeing you and taking care of you! Take care, Juanita Sepulveda M.D. Pending Studies at Discharge: No Stand-Alone Forms: My [facility] Medications and DC Order Prescriptions: New Eliquis 5 mg Tablet 5 mg PO BID Qty: 60 RF: 0 acetaminophen 500 mg tablet 1,000 mg PO Q8 PRN (Reason: pain) Qty: 30 RF: 0 diltiazem HCl 120 mg capsule,extended release 24hr 120 mg PO QAM Qty: 30 RF: 0 diclofenac sodium [Voltaren Arthritis Pain] 1 % gel 2 g topical QID PRN (Reason: arthritis pain) Qty: 100 RF: 0 Continued atorvastatin 20 mg tablet 20 mg PO HS RF: 0 multivitamin Tablet 1 tab PO DAILY RF: 0 cholecalciferol (vitamin D3) [Vitamin D3] 50 mcg (2,000 unit) Tablet 50 mcg PO DAILY RF: 0 doxycycline hyclate 50 mg capsule 50 mg PO DAILY RF: 0 lorazepam 0.5 mg tablet 0.5 mg PO TID PRN (Reason: Anxiety) RF: 0 Discontinued lisinopril 10 mg tablet 10 mg PO DAILY RF: 0 ibuprofen 600 mg tablet 600 mg PO TID PRN (Reason: Pain) RF: 0 Discharge Orders: Discharge Order (Routine); Ordered 07/10/20 Ordered By: Juanita Sepulveda Admission Data Admit Date/Time: 07/10/20 01:30 Attending Provider: Juanita Sepulveda Admit Provider: Angela Alcala Primary Care Provider: Valeriy Dumont Other Providers: Angela Alcala ; Santiago Diaz Other Interventions: Discharge Summary Assessment (RN) Last Done: 07/10/20 16:55 Coding Level of Care Code 31839 OBS Care - Discharge Diagnoses Atrial fibrillation I48.91 Atrial fibrillation type: unspecified Hyperlipidemia E78.5 Hyperlipidemia type: unspecified Frontal fibrosing alopecia L66.1 Essential (primary) hypertension I10 Hypokalemia E87.6 DVT prophylaxis Z29.9
[2020-07-10] MEDS ORDERED: ATORVASTATIN 20 MG TAB PO SCH (21:00)
== END 2020-07-10 17:18 | disposition home or self-care (01) ==
LOC: ED 23:02 → INTOOBSV 07-10 01:30 → 2S 07-10 01:30 → SUATTDRO 07-10 01:30 → 2S 07-10 02:12